=== PATIENT | male | born 1940 | race Two or more races ===

== ENCOUNTER 2018-02-23 08:17 | Emergency (ER) | payer MEDICAID ==
[~2018-02-23] VITALS: Ht 157.5 cm; Wt 66.7 kg
[2018-02-23 08:21] VITALS: Ht 157.5 cm; Wt 66.7 kg
[2018-02-23 09:37] LABS: BASOPHIL % 2.2 % (0-2); RED CELL DISTRIBUTION WIDTH 21.4 % (11.5-14.5)
[2018-02-23 09:39] LABS: PLATELET COUNT 57 x10^3mcL (130-400); rbc morphology (normal/abnorm) ABNORMAL (NORMAL)
[2018-02-23 10:27] VITALS: BP 121/57
== END 2018-02-23 10:27 | disposition home or self-care (01) ==
LOC: ED 08:17
PROVIDERS: Emergency Medicine
DX: G44.209 Tension-type headache, unspecified, not intractable (principal); R42 Dizziness and giddiness; I10 Essential (primary) hypertension
CPT/HCPCS: 36415

== ENCOUNTER 2018-04-11 13:57 | Emergency (ER) | payer MEDICAID ==
[2018-04-11 14:52] LABS: CALCIUM 8.6 mg/dL (8.5-10.1); CARBON DIOXIDE 25.4 mmol/L (21-32); CHLORIDE SERUM 104 mmol/L (98-107); CREATININE SERUM 0.8 mg/dL (0.7-1.3); GLUCOSE SERUM 116 mg/dL (74-106); POTASSIUM SERUM 3.8 mmol/L (3.5-5.1); SODIUM SERUM 141 mmol/L (136-145)
[2018-04-11 14:59] LABS: PLATELET COUNT 161 x10^3mcL (130-400)
[2018-04-11 15:05] LABS: BASOPHIL % 2.7 % (0-2); RED CELL DISTRIBUTION WIDTH 25.3 % (11.5-14.5)
[2018-04-11 17:37] VITALS: BP 115/71
== END 2018-04-11 17:37 | disposition home or self-care (01) ==
LOC: ED 13:57
PROVIDERS: Emergency Medicine
DX: S03.02XA Dislocation of jaw, left side, initial encounter (principal); I10 Essential (primary) hypertension; Z86.73 Personal history of transient ischemic attack (TIA), and cerebral infarction without residual deficits; X58.XXXA Exposure to other specified factors, initial encounter; Y93.89 Activity, other specified; Y92.89 Other specified places as the place of occurrence of the external cause; Y99.8 Other external cause status
CPT/HCPCS: J1200; J3010; J7030; Q0092